=== PATIENT | male | born 1960 | race Two or more races ===

== ENCOUNTER 2021-12-02 09:57 | Emergency (ER) | payer OTHER ==
[~2021-12-02] VITALS: Ht 182.9 cm; Wt 98.9 kg
[2021-12-02] MEDS ORDERED: CIPRO500 MG PO (15:12)
[2021-12-02] MEDS ORDERED: PROTONIX40 MG PO (15:13)
[2021-12-02] MEDS ORDERED: LEVSIN/SL0.125 MG SL (15:14)
== END 2021-12-02 15:22 | disposition home or self-care (01) ==
LOC: ER 09:57
DX: K57.33 Diverticulitis of large intestine without perforation or abscess with bleeding (principal)

== ENCOUNTER 2023-06-27 09:15 | Emergency (ER) | payer OTHER ==
[~2023-06-27] VITALS: Ht 182.9 cm; Wt 104.3 kg
[~2023-06-27 09:15] MED LIST: CIPRO500 MG PO; LEVSIN/SL0.125 MG SL; PROTONIX40 MG PO
[2023-06-27] MEDS ORDERED: CIPROFLOXACIN IN 5 % DEXTROSE 400 MG/200 ML PIGGYBAG IV STA (10:00)
[2023-06-27] MEDS ORDERED: METRONIDAZOLE/SODIUM CHLORIDE 500 MG/100 ML PIGGYBACK IV STA (10:00)
[2023-06-27] MEDS ORDERED: HYOSCYAMINE SULFATE 0.125 MG TAB.SUBL SL ONE (10:00)
[2023-06-27 10:57] LABS: HEMATOCRIT 40.9 % (39.0-48.0); MEAN CELL VOLUME 91.1 fL (80.0-100.00); MEAN CORPUSCULAR HEMOGLOBIN 31.2 pg (27.00-32.0); MEAN CORPUSCULAR HGB CONC 34.2 g/dl (32.0-36.0); PLATELET COUNT 230 K/uL (150-450); RED BLOOD COUNT 4.49 M/uL (4.00-6.00)
[2023-06-27 11:14] LABS: URINE APPEARANCE Clear; URINE BILIRRUBIN Negative (NEGATIVE); URINE BLOOD Negative; URINE COLOR Yellow; URINE GLUCOSE Negative (NEGATIVE); URINE LEUKOCYTE Negative; URINE NITRATE Negative; URINE PROTEIN Negative (NEGATIVE); URINE UROBILINOGEN 0.2 E.U./dl
[2023-06-27 11:15] LABS: URINE EPITHELIAL CELLS 1.5 uL (0.0-38.8); URINE RBC 6.8 uL (0.0-20.8); URINE WBC 2.4 uL (0.0-23.2)
[2023-06-27 11:29] LABS: ALBUMIN 3.8 gm/dL (3.4-5.0); BILIRUBIN TOTAL 0.85 mg/dL (0.3-1.2); CALCIUM 9.2 mg/dL (8.5-10.1); GFR 75.71; GLOBULINA 4.2 G/DL (2.4-3.5); POTASSIUM 4.18 mEq/L (3.5-5.1)
[2023-06-27 12:02] LABS: URINE BACTERIA 1.2 uL (0.0-1933)
[2023-06-27] MEDS ORDERED: METRONIDAZOLE500 MG PO (15:49)
[2023-06-27] MEDS ORDERED: PROBIOTIC ACID1 EAC3 PO (15:51)
== END 2023-06-27 16:28 | disposition home or self-care (01) ==
LOC: ER 09:15
PROVIDERS: Internal Medicine
DX: K52.89 Other specified noninfective gastroenteritis and colitis (principal); K57.32 Diverticulitis of large intestine without perforation or abscess without bleeding

== ENCOUNTER → 2023-10-12 | Emergency (ER) | payer OTHER ==
[~2023-10-12] VITALS: Ht 208.3 cm; Wt 105.7 kg
[~2023-10-12] MED LIST changes: +CHILDREN'S ASPI81 MG; +CIPROFLOXACIN IN 5 % DEXTROSE 400 MG/200 ML PIGGYBAG IV ONE; +CIPROFLOXACIN IN 5 % DEXTROSE 400 MG/200 ML PIGGYBAG IV SCH; +CIPROFLOXACIN IN 5 % DEXTROSE 400 MG/200 ML PIGGYBAG IV STA; +KETOROLAC TROMETHAMINE 15 MG VIAL IV STA; +KETOROLAC TROMETHAMINE 30 MG VIAL ONE; +LIPITOR20 MG PO; +METRONIDAZOLE/SODIUM CHLORIDE 500 MG/100 ML PIGGYBACK IV ONE; +METRONIDAZOLE/SODIUM CHLORIDE 500 MG/100 ML PIGGYBACK IV STA; +METRONIDAZOLE500 MG PO; +PROBIOTIC ACID1 EAC3 PO
[2023-10-12 09:39] LABS: HEMATOCRIT 40.4 % (39.0-48.0); HEMOGLOBIN 13.6 g/dL (13-16.00); MEAN CELL VOLUME 93.3 fL (80.0-100.00); MEAN CORPUSCULAR HEMOGLOBIN 31.4 pg (27.00-32.0); MEAN CORPUSCULAR HGB CONC 33.6 g/dl (32.0-36.0); PLATELET COUNT 176 K/uL (150-450); RED BLOOD COUNT 4.33 M/uL (4.00-6.00); RED CELL DISTRIBUTION WIDTH 13.5 % (11.5-14.5)
[2023-10-12 10:01] LABS: URINE APPEARANCE Clear; URINE BILIRRUBIN Negative (NEGATIVE); URINE BLOOD Negative; URINE COLOR Yellow; URINE GLUCOSE Negative (NEGATIVE); URINE LEUKOCYTE Negative; URINE NITRATE Negative; URINE PROTEIN Negative (NEGATIVE); URINE UROBILINOGEN 0.2 E.U./dl
[2023-10-12 10:12] LABS: URINE BACTERIA 2.5 uL (0.0-1933); URINE EPITHELIAL CELLS 0.7 uL (0.0-38.8); URINE RBC 1.2 uL (0.0-20.8); URINE WBC 0.9 uL (0.0-23.2)
[2023-10-12 10:37] LABS: ALBUMIN 4.1 gm/dL (3.4-5.0); BILIRUBIN TOTAL 0.39 mg/dL (0.3-1.2); BILIRUBIN,CONJUGATED 0.1 mg/dL (0.0-0.2); BILIRUBIN,UNCONJUGATED 0.29 mg/dL (0.0-0.6); CALCIUM 9.4 mg/dL (8.5-10.1); GFR 75.71; POTASSIUM 4.79 mEq/L (3.5-5.1); TOTAL PROTEIN 7.2 gm/dL (6.4-8.2)
== END | disposition home or self-care (01) ==
LOC: ER 09:03
PROVIDERS: General Practice
DX: K57.32 Diverticulitis of large intestine without perforation or abscess without bleeding (principal)

== ENCOUNTER → 2024-03-04 | Outpatient (CLI) | payer OTHER ==
[~2024-03-04] MED LIST changes: -CIPROFLOXACIN IN 5 % DEXTROSE 400 MG/200 ML PIGGYBAG IV ONE; -CIPROFLOXACIN IN 5 % DEXTROSE 400 MG/200 ML PIGGYBAG IV SCH; -CIPROFLOXACIN IN 5 % DEXTROSE 400 MG/200 ML PIGGYBAG IV STA; -KETOROLAC TROMETHAMINE 15 MG VIAL IV STA; -KETOROLAC TROMETHAMINE 30 MG VIAL ONE; -METRONIDAZOLE/SODIUM CHLORIDE 500 MG/100 ML PIGGYBACK IV ONE; -METRONIDAZOLE/SODIUM CHLORIDE 500 MG/100 ML PIGGYBACK IV STA
== END | disposition home or self-care (01) ==
LOC: TOM 12:04
PROVIDERS: ATTEND Internal Medicine
DX: R10.9 Unspecified abdominal pain (principal)

== ENCOUNTER 2024-12-27 21:28 | Emergency (ER) | payer OTHER ==
[~2024-12-27] VITALS: Ht 182.9 cm; Wt 97.5 kg
[2024-12-27] MEDS ORDERED: TAMSULOSIN HCL 0.4 MG CAP PO ONE ×2 (22:00→22:09)
[2024-12-27] MEDS ORDERED: 0.9 % SODIUM CHLORIDE 1,000 ML IV ONE (22:00)
[2024-12-27] MEDS ORDERED: MORPHINE SULFATE 4 MG/ML CARTRIDGE IV ONE ×2 (22:00→23:45)
[2024-12-27] MEDS ORDERED: FAMOtidine 10 MG/ML (4ML VIAL) IV ONE (22:00)
[2024-12-27] MEDS ORDERED: ONDANSETRON HCL 2 MG/ML VIAL IV ONE (22:00)
[2024-12-27] MEDS ORDERED: CEFTRIAXONE SODIUM 1,000 MG VIAL IV ONE (22:00)
[2024-12-27] MEDS ORDERED: CEFTRIAXONE SODIUM 1,000 MG VIAL ONE (22:09)
[2024-12-27] MEDS ORDERED: FAMOTIDINE/PF 20 MG/2 ML VIAL ONE (22:09)
[2024-12-27] MEDS ORDERED: ONDANSETRON HCL 2 MG/ML VIAL ONE (22:09)
[2024-12-27 23:20] LABS: BASO % 0.7 % (0.1-1.2); EOS # 0.18 (0.04-0.54); EOS % 1.9 % (0.7-7.0); LYMPH # 1.66 (1.18-3.74); LYMPH % 17.4 % (19.3-53.1); MEAN PLATELET VOLUME 11.50 fl (9.4-12.4); MONO # 0.66 (0.24-0.82); MONO % 6.9 % (4.7-12.5); NEUT # 6.93 (1.56-6.13); NEUT % 72.9 % (34.0-71.1); RED CELL DISTRIBUTION WIDTH 12.8 % (11.6-14.4)
[2024-12-27 23:39] LABS: ALT/SGPT 25.0 U/L (12-78); AST/SGOT 19.0 U/L (15-37); BILIRUBIN TOTAL 0.34 mg/dL (0.3-1.2); BUN CREA RATIO 16.0 (7.0-25.0); CREATININE SERUM 1.53 mg/dL (0.70-1.30); GFR 46.2; GLOBULINA 3.4 G/DL (2.4-3.5); GLUCOSE FASTING 122.0 mg/dL (65-100); OSMOLALITY SERUM 285.0 MOSM/KG (275-295)
[2024-12-28 00:09] LABS: INR 0.98
[2024-12-28] MEDS ORDERED: PROMETHAZINE HCL 50 MG/ML AMPUL IM ONE ×2 (00:45→02:08)
[2024-12-28] MEDS ORDERED: MORPHINE SULFATE 4 MG/ML CARTRIDGE IV PRN (00:45)
[2024-12-28] MEDS ORDERED: BACTRIM DS TAB1 EACH PO (00:47)
[2024-12-28] MEDS ORDERED: PEPCID AC20 MG PO (00:47)
[2024-12-28] MEDS ORDERED: NORFLEX100MG PO (00:47)
[2024-12-28] MEDS ORDERED: KETO10TA2 PO (00:47)
[2024-12-28] MEDS ORDERED: TAMS0.4C PO (00:47)
[2024-12-28] MEDS ORDERED: ZOFRAN8 MG PO (00:47)
== END 2024-12-28 02:36 | disposition home or self-care (01) ==
LOC: ER 21:28
PROVIDERS: General Practice
DX: R10.32 Left lower quadrant pain (principal); N20.2 Calculus of kidney with calculus of ureter